=== PATIENT | male | born 1940 | race Hispanic/Latino ===

== ENCOUNTER 2021-08-21 21:19 | Inpatient (IN) | payer MEDICARE ==
[2021-08-21] MEDS ORDERED: Cefepime 2 GM VIAL ONE ×2 (22:03→22:14)
[2021-08-21] MEDS ORDERED: Vancomycin 1 GM in Premix Bag 1 BAG IVPB SCH (22:15)
[2021-08-21 22:59] LABS: Bacteria/HPF 4+ HPF (None Seen); Bilirubin Negative (Negative); Blood, Urine 2+ (Negative); Clarity Extra Turbid (Clear); Glucose, Urine (Dipstick) 500 mg/dL (Negative); Ketone, Urine Negative (Negative); Leukocyte 500 Leu/uL (Negative); Nitrite Negative (Negative); Protein, Urine (Dipstick) 50 mg/dL (Neg-Trace); RBC/HPF Greater than 50 HPF (0-3); Specific Gravity, Urine 1.016 (1.002-1.036); Squamous Epithelial None Seen HPF (0-3); Urobilinogen Normal mg/dL (Less than 2); WBC/HPF Greater than 50 HPF (0-3)
[2021-08-21 22:59] LABS: Hemoglobin 9.9 g/dL (14.0-18.0); Mean Corpuscular HGB CONC 30.6 g/dL (32.0-36.0); Mean Corpuscular Hemoglobin 26.6 pg (27.0-31.0); Mean Corpuscular Volume 86.9 fL (78.0-98.0); Mean Platelet Volume 9.1 fL (7.4-10.4); Platelet Count 350 thou/uL (130-400); RBC Distribution Width 14.3 % (11.5-14.5); Red Blood Cell (RBC) Count 3.72 mill/uL (4.70-6.10); White Blood Cell (WBC) Count 11.1 thou/uL (4.8-10.8)
[2021-08-21] MEDS ORDERED: Clindamycin/D5W 900 mg/50 ml Premix Bag ONE (23:05)
[2021-08-21 23:11] LABS: ALT (SGPT) 34 U/L (8-55); AST (SGOT) 27 U/L (5-34); Alkaline Phosphatase 169 U/L (40-110); Anion Gap 17 mmol/L (10-20); BUN (Urea Nitrogen) 85 mg/dL (8.4-25.7); Bilirubin, Total 0.2 mg/dL (0.2-1.2); Calc. Creatinine Clearance 0 mL/min (70-130); Calcium 9.1 mg/dL (7.8-10.44); Carbon Dioxide 25 mmol/L (23-31); Chloride 111 mmol/L (98-107); Globulin 4.9 g/dL (2.4-3.5); Glucose 274 mg/dL (83-110); Potassium 3.9 mmol/L (3.5-5.1); Protein, Total 7.9 g/dL (5.8-8.1); Sodium 149 mmol/L (136-145)
[2021-08-21 23:15] LABS: Band 19 % (5-11); Lymphocytes 12 % (21-51); MDiff Complete? YES; Monocytes 6 % (0-10); Neutrophil 63 % (42-75)
[2021-08-22 01:01] LABS: Troponin I 0.113 ng/mL (< 0.028)
[2021-08-22] MEDS ORDERED: Dextrose 50% Abboject 50 ML SYRINGE SLOW IVP PRN (02:11)
[2021-08-22] MEDS ORDERED: HumaLOG 300 UNITS/3 ML VIAL SC PRN (02:11)
[2021-08-22] MEDS ORDERED: Acetaminophen 325 MG TAB PO PRN (02:11)
[2021-08-22] MEDS ORDERED: Dextrose 5% in Water 1,000 ML IV PRN (02:11)
[2021-08-22] MEDS ORDERED: Morphine 2 MG/ML VIAL SLOW IVP PRN (02:13)
[2021-08-22] MEDS ORDERED: hydrALAZINE 20 MG/ML VIAL SLOW IVP PRN (02:13)
[2021-08-22] MEDS ORDERED: Vancomycin 1 GM in Premix Bag 1 BAG IVPB SCH (02:15)
[2021-08-22] MEDS: Sodium Chloride 0.45% 1,000 ML IV SCH ×2 (02:31→17:49)
[2021-08-22 03:03] VITALS: BMI 19.2
[2021-08-22 04:31] LABS: #Lymphocytes 0.9 thou/uL (1.20-3.40); #Neutrophils 7.2 thou/uL (1.40-6.50); %Basophils 0.1 % (0.0-1.0); %Lymphocytes 9.8 % (21.0-51.0); %Neutrophils 79.1 % (42.0-75.0); Hemoglobin 8.8 g/dL (14.0-18.0); Mean Corpuscular HGB CONC 32.1 g/dL (32.0-36.0); Mean Corpuscular Volume 87.2 fL (78.0-98.0); Platelet Count 322 thou/uL (130-400); RBC Distribution Width 14.7 % (11.5-14.5); Red Blood Cell (RBC) Count 3.14 mill/uL (4.70-6.10); White Blood Cell (WBC) Count 9.1 thou/uL (4.8-10.8)
[2021-08-22 04:52] LABS: ALT (SGPT) 31 U/L (8-55); AST (SGOT) 30 U/L (5-34); Albumin 2.7 g/dL (3.4-4.8); Alkaline Phosphatase 108 U/L (40-110); Anion Gap 15 mmol/L (10-20); BUN (Urea Nitrogen) 74 mg/dL (8.4-25.7); Bilirubin, Total 0.3 mg/dL (0.2-1.2); Calc. Creatinine Clearance 51 mL/min (70-130); Calcium 8.5 mg/dL (7.8-10.44); Carbon Dioxide 26 mmol/L (23-31); Chloride 111 mmol/L (98-107); Glucose 259 mg/dL (83-110); Potassium 3.6 mmol/L (3.5-5.1); Protein, Total 6.7 g/dL (5.8-8.1); Sodium 148 mmol/L (136-145)
[2021-08-22] MEDS: Cefepime 1 GM in Sodium Chloride 0.9% 100 ML IVPB SCH ×2 (09:20→20:39)
[2021-08-22] MEDS: Enoxaparin Sodium 40 MG/0.4 ML SYRINGE SC SCH (09:20)
[2021-08-22 16:07] LABS: SARS-CoV-2 PCR by NAA Not Detected (NotDetected)
[2021-08-22] MEDS: Vancomycin HCl 750 MG in Sodium Chloride 0.9% 250 ML 250 ML IVPB SCH (22:14)
[2021-08-23] MEDS: HumaLOG 300 UNITS/3 ML VIAL SC PRN (06:17)
[2021-08-23] MEDS: Sodium Chloride 0.45% 1,000 ML IV SCH ×2 (06:23→20:36)
[2021-08-23] MEDS ORDERED: Acetaminophen 650 MG Suppository PR PRN (08:37)
[2021-08-23] MEDS ORDERED: Promethazine 25 MG TAB PER TUBE PRN (08:37)
[2021-08-23] MEDS ORDERED: Non-Formulary Item 1 EACH (Loperamide Hcl [Imodium A-D] 2 MG Tablet) PER TUBE PRN (08:37)
[2021-08-23] MEDS ORDERED: Acetaminophen/Codeine 30-300mg Tablet PER TUBE PRN (08:37)
[2021-08-23] MEDS ORDERED: Loperamide HCl 1 MG/7.5 ML UDCUP PER TUBE PRN (08:56)
[2021-08-23] MEDS ORDERED: Non-Formulary Item 1 EACH (Multivitamin [Multivitamin] 1 EACH Tablet) PER TUBE SCH (09:00)
[2021-08-23] MEDS ORDERED: Non-Formulary Item 1 EACH (Omeprazole [Omeprazole] 20 MG Capsule.Dr) PER TUBE SCH (09:00)
[2021-08-23] MEDS ORDERED: Non-Formulary Item 1 EACH (Argin/Glut/Cahmb/Collag/Mv-Min [Juven Packet] 1 EACH Powd.Pack PER TUBE SCH (09:00)
[2021-08-23] MEDS ORDERED: Non-Formulary Item 1 EACH (Amino Acids/Protein Hydrolys [Pro-Stat 64 Liquid] 30 ML Packet PER TUBE SCH (09:00)
[2021-08-23] MEDS ORDERED: Non-Formulary Item 1 EACH (Ascorbic Acid [Vitamin C] 1,000 MG Tablet) PER TUBE SCH (09:00)
[2021-08-23] MEDS: Cefepime 1 GM in Sodium Chloride 0.9% 100 ML IVPB SCH ×2 (10:00→20:36)
[2021-08-23] MEDS: Enoxaparin Sodium 40 MG/0.4 ML SYRINGE SC SCH (10:00)
[2021-08-23] MEDS: Ascorbic Acid 500 mg Chewable Tablet PER TUBE SCH (10:00)
[2021-08-23] MEDS: Multivits W-Minerals Liquid 15 ML LIQ PER TUBE SCH (10:01)
[2021-08-23] MEDS: Lisinopril 2.5 MG TAB PER TUBE SCH (10:01)
[2021-08-23] MEDS: Insulin Glargine 30 UNITS/0.3 ML VIAL SC SCH (10:01)
[2021-08-23] MEDS: metFORMIN 500 MG TAB PER TUBE SCH ×2 (10:01→20:38)
[2021-08-23] MEDS: Metoprolol Tartrate 50 MG TAB PER TUBE SCH ×2 (10:01→20:37)
[2021-08-23] MEDS: levETIRAcetam 500 MG TAB PER TUBE SCH ×2 (10:01→20:38)
[2021-08-23] MEDS: Saccharomyces boulardii 250 MG CAP PER TUBE SCH ×2 (10:02→20:37)
[2021-08-23] MEDS: Zinc Sulfate 220 MG CAP PER TUBE SCH (10:02)
[2021-08-23] MEDS: Lansoprazole 3 MG/ML ORAL SUSPENSION PER TUBE SCH (10:02)
[2021-08-23] MEDS: Melatonin 3 MG TAB PER TUBE SCH (20:37)
[2021-08-23] MEDS: Atorvastatin Calcium 20 MG TAB PER TUBE SCH (20:38)
[2021-08-23] MEDS ORDERED: Non-Formulary Item 1 EACH (Melatonin [Melatonin] 5 MG Tablet) PER TUBE SCH (21:00)
[2021-08-23 21:44] LABS: Vancomycin, Trough 7.1 ug/mL
[2021-08-23] MEDS: Vancomycin HCl 750 MG in Sodium Chloride 0.9% 250 ML 250 ML IVPB SCH (22:55)
[2021-08-24] MEDS ORDERED: Vancomycin HCl 750 MG in Sodium Chloride 0.9% 250 ML 250 ML IVPB SCH (10:00)
[2021-08-24] MEDS: Lisinopril 2.5 MG TAB PER TUBE SCH (10:16)
[2021-08-24] MEDS: Ascorbic Acid 500 mg Chewable Tablet PER TUBE SCH (10:16)
[2021-08-24] MEDS: Lansoprazole 3 MG/ML ORAL SUSPENSION PER TUBE SCH (10:16)
[2021-08-24] MEDS: levETIRAcetam 500 MG TAB PER TUBE SCH ×2 (10:16→21:26)
[2021-08-24] MEDS: Insulin Glargine 30 UNITS/0.3 ML VIAL SC SCH (10:16)
[2021-08-24] MEDS: Enoxaparin Sodium 40 MG/0.4 ML SYRINGE SC SCH (10:16)
[2021-08-24] MEDS: metFORMIN 500 MG TAB PER TUBE SCH ×2 (10:16→21:26)
[2021-08-24] MEDS: Multivits W-Minerals Liquid 15 ML LIQ PER TUBE SCH (10:17)
[2021-08-24] MEDS: Metoprolol Tartrate 50 MG TAB PER TUBE SCH ×2 (10:17→21:26)
[2021-08-24] MEDS: Sodium Chloride 0.45% 1,000 ML IV SCH (10:17)
[2021-08-24] MEDS: Saccharomyces boulardii 250 MG CAP PER TUBE SCH ×2 (10:17→21:26)
[2021-08-24] MEDS: Zinc Sulfate 220 MG CAP PER TUBE SCH (10:17)
[2021-08-24] MEDS: Cefepime 1 GM in Sodium Chloride 0.9% 100 ML IVPB SCH ×2 (10:32→21:26)
[2021-08-24] MEDS ORDERED: Cefepime 1 GM VIAL ONE (10:33)
[2021-08-24] MEDS: Non-Formulary Item 1 EACH (Argin/Glut/Cahmb/Collag/Mv-Min [Juven Packet] 1 EACH Powd.Pack PER TUBE SCH (11:03)
[2021-08-24] MEDS: HumaLOG 300 UNITS/3 ML VIAL SC PRN (18:35)
[2021-08-24] MEDS: Melatonin 3 MG TAB PER TUBE SCH (21:25)
[2021-08-24] MEDS: Atorvastatin Calcium 20 MG TAB PER TUBE SCH (21:26)
[2021-08-25] MEDS: Sodium Chloride 0.45% 1,000 ML IV SCH (00:58)
[2021-08-25] MEDS ORDERED: Vancomycin HCl 750 MG in Sodium Chloride 0.9% 250 ML 250 ML IVPB SCH (04:00)
[2021-08-25 05:03] LABS: Hemoglobin 8.5 g/dL (14.0-18.0); Mean Corpuscular HGB CONC 31.7 g/dL (32.0-36.0); Mean Corpuscular Hemoglobin 26.9 pg (27.0-31.0); Mean Corpuscular Volume 84.8 fL (78.0-98.0); Mean Platelet Volume 8.3 fL (7.4-10.4); Platelet Count 359 thou/uL (130-400); RBC Distribution Width 14.1 % (11.5-14.5); Red Blood Cell (RBC) Count 3.16 mill/uL (4.70-6.10); White Blood Cell (WBC) Count 13.9 thou/uL (4.8-10.8)
[2021-08-25 05:17] LABS: Anion Gap 14 mmol/L (10-20); BUN (Urea Nitrogen) 33 mg/dL (8.4-25.7); Band 9 % (5-11); Calc. Creatinine Clearance 67 mL/min (70-130); Calcium 7.9 mg/dL (7.8-10.44); Carbon Dioxide 24 mmol/L (23-31); Chloride 104 mmol/L (98-107); Eosinophils 6 % (0-10); Glucose 90 mg/dL (83-110); Lymphocytes 9 % (21-51); MDiff Complete? YES; Metamyelocyte 1 % (0-0); Monocytes 5 % (0-10); Myelocyte 1 % (0-0); Neutrophil 69 % (42-75); Potassium 3.6 mmol/L (3.5-5.1); Sodium 138 mmol/L (136-145)
[2021-08-25] MEDS ORDERED: Amoxicillin/Potassium Clav 875 MG TAB PO SCH (09:00)
[2021-08-25] MEDS: Insulin Glargine 30 UNITS/0.3 ML VIAL SC SCH (09:42)
[2021-08-25] MEDS: Enoxaparin Sodium 40 MG/0.4 ML SYRINGE SC SCH (09:42)
[2021-08-25] MEDS: Multivits W-Minerals Liquid 15 ML LIQ PER TUBE SCH (09:42)
[2021-08-25] MEDS: Lisinopril 2.5 MG TAB PER TUBE SCH (09:43)
[2021-08-25] MEDS: levETIRAcetam 500 MG TAB PER TUBE SCH (09:43)
[2021-08-25] MEDS: Zinc Sulfate 220 MG CAP PER TUBE SCH (09:43)
[2021-08-25] MEDS: Saccharomyces boulardii 250 MG CAP PER TUBE SCH (09:43)
[2021-08-25] MEDS: Ascorbic Acid 500 mg Chewable Tablet PER TUBE SCH (09:43)
[2021-08-25] MEDS: Metoprolol Tartrate 50 MG TAB PER TUBE SCH (09:43)
[2021-08-25] MEDS: metFORMIN 500 MG TAB PER TUBE SCH (09:44)
[2021-08-25] MEDS: Lansoprazole 3 MG/ML ORAL SUSPENSION PER TUBE SCH (10:01)
[2021-08-25 15:33] LABS: Vancomycin, Trough 12.9 ug/mL
[2021-08-25 16:03] VITALS: BP 126/65; TEMP 99.6
== END 2021-08-25 18:45 | DRG 871 ==
LOC: ERS 21:19 → 2NO 08-22 00:09
PROVIDERS: ADMIT Emergency Medicine; ATTEND Emergency Medicine
DX: A41.81 Sepsis due to Enterococcus (principal); J69.0 Pneumonitis due to inhalation of food and vomit; J18.9 Pneumonia, unspecified organism; E11.52 Type 2 diabetes mellitus with diabetic peripheral angiopathy with gangrene; N39.0 Urinary tract infection, site not specified; E87.0 Hyperosmolality and hypernatremia; F03.90 Unspecified dementia, unspecified severity, without behavioral disturbance, psychotic disturbance, mood disturbance, and anxiety; E78.5 Hyperlipidemia, unspecified; K21.9 Gastro-esophageal reflux disease without esophagitis; E11.621 Type 2 diabetes mellitus with foot ulcer; R13.10 Dysphagia, unspecified; G40.909 Epilepsy, unspecified, not intractable, without status epilepticus; I10 Essential (primary) hypertension; I25.10 Atherosclerotic heart disease of native coronary artery without angina pectoris; L97.519 Non-pressure chronic ulcer of other part of right foot with unspecified severity; E11.65 Type 2 diabetes mellitus with hyperglycemia; Z79.84 Long term (current) use of oral hypoglycemic drugs; Z79.899 Other long term (current) drug therapy; Z79.4 Long term (current) use of insulin; I69.920 Aphasia following unspecified cerebrovascular disease; Z93.1 Gastrostomy status; I69.991 Dysphagia following unspecified cerebrovascular disease
CPT/HCPCS: 36415; 36416; 71045; 80048; 80053; 80202; 81003; 81015; 83605; 84484; 85025; 87040; 87077; 87086; 87186; 93005; J0692; J1650; J1815; J3370; J3490; J7050; U0003; U0005